=== PATIENT | female | born 1995 | race Caucasian/White ===

== ENCOUNTER 2021-03-05 18:46 | Emergency (ER) | payer OTHER | END 2021-03-05 20:50 | disposition home or self-care (01) | LOC: ERS 18:46 | DX: O9A.213 Injury, poisoning and certain other consequences of external causes complicating pregnancy, third trimester (principal); T14.8XXA Other injury of unspecified body region, initial encounter; Z3A.32 32 weeks gestation of pregnancy; V43.52XA Car driver injured in collision with other type car in traffic accident, initial encounter; Y92.410 Unspecified street and highway as the place of occurrence of the external cause ==